=== PATIENT | male | born 1995 | race Caucasian/White ===

== ENCOUNTER 2016-07-20 06:43 | Emergency (ER) | payer OTHER ==
[~2016-07-20] VITALS: Ht 182.9 cm; Wt 83.2 kg
[2016-07-20 06:47] VITALS: TEMP 36.4; Ht 182.9 cm; Wt 83.2 kg
[2016-07-20] MEDS ORDERED: SODIUM CHLORIDE 0.9% 1000ML 500 ML IV STA (06:58)
--- NOTE | 2016-07-20 07:06 | EMERGENCY ROOM VISIT NOTE ---
History Report prepared by Monica: Opal Grgeory Under the Supervision of: Dr. Ricci Stoll M.D. First contact with patient: 06:54 Chief Complaint: ABDOMINAL PAIN Stated Complaint: SHARP PAIN ON RT SIDE OF ABDOMEN History of Present Illness The patient is a 21 year old male who presents to the Emergency Room with complaints of intermittent right sided abdominal pain starting 3 days ago. He describes the pain as sharp and rates his discomfort as an 8/10 at its worst. When the pain presents, it occurs for about 5 seconds at a time for a period of 1-2 hours, after which he does not experience any pain for a couple hours. He presents to the ED today after his pain worsened this morning. He identifies no worsening or relieving factors. He denies any changes to bowel movements, urinary symptoms, nausea, fever, chills, cough, or cold. He has not had any abdominal surgeries before. Source of History: patient Onset: 3 days ago Position: abdomen (right side) Symptom Intensity: 8/10 Quality: sharp Timing: intermittent Associated Symptoms: No chills, No cough, No fevers, No nausea, No urinary symptoms Note: Pt denies changes to bowel movements, cold. Review of Systems See HPI for pertinent positives & negatives. A total of 10 systems reviewed and were otherwise negative. Family History Cancer Hypertension Social History Smoking Status: Never Smoker Smokeless Tobacco Use: No Alcohol Use: occasionally Marital Status: single Occupation Status: [employer] student Current/Historical Medications Scheduled Acetaminophen Tab (Tylenol), 3 TABS PO UD Pantoprazole (Protonix), 20 MG PO DAILY Sennosides-Docusate Sodium (Senokot S), 2 TAB PO BID Allergies Coded Allergies: No Known Allergies (Unverified , 07/20/16) Physical Exam Vital Signs Date Time Temp Pulse Resp B/P Pulse Ox O2 Delivery O2 Flow Rate FiO2 07/20/16 09:15 60 18 123/78 99 07/20/16 08:21 63 20 127/75 100 Room Air 07/20/16 06:47 36.4 67 19 152/88 99 Room Air Physical Exam GENERAL: Patient is in no acute distress. HEENT: No acute trauma, normocephalic atraumatic, mucous membranes moist, no nasal congestion, no scleral icterus. NECK: No stridor, no adenopathy, no meningismus, trachea is midline. LUNGS: Clear to auscultation bilaterally, no wheeze, no rhonchi, breath sounds equal. HEART: Without murmurs gallops or rubs, regular rate and rhythm. ABDOMEN: Soft, mildly tender in the RUQ, bowel sounds positive, no hernias, no peritonitis. EXTREMITIES: No cyanosis or edema, full range of motion of all the joints without pain or difficulty, no signs for acute trauma. NEUROLOGIC: Oriented x 3, no acute motor or sensory deficits, no focal weakness. SKIN: No rash, no jaundice, no diaphoresis. Medical Decision & Procedures ER Provider Diagnostic Interpretation: X ray results and stated below per my interpretation and radiologist interpretation. Other radiology results and stated below per my review and radiologist interpretation: ABDOMEN 2VIEW W/PA CHEST RTN CLINICAL HISTORY: ABDOMINAL PAIN/GI pain. Nausea. COMPARISON STUDY: No previous studies for comparison. FINDINGS: The soft tissues, psoas shadows, renal outlines and intestinal gas pattern appear normal. There is no evidence for bowel obstruction. There is no evidence for free intraperitoneal air. Nonspecific calcification right lateral pelvis.. A frontal view of the chest was performed and is unremarkable. IMPRESSION: 1. Negative chest. 2. Nonspecific calcification right lateral pelvis. 3. Nonobstructive bowel pattern. Electronically signed by: Hector Pastor M.D. 07/20/2016 7:56 AM Dictated Date/Time: 07/20/2016 7:54 AM ABDOMINAL ULTRASOUND, RIGHT UPPER QUADRANT HISTORY: Right-sided abdominal pain. COMPARISON: None. FINDINGS: The liver is sonographically normal. There is no biliary ductal dilatation. The gallbladder is normal. No gallstones. The pancreas is sonographically normal. No right hydronephrosis is present. IMPRESSION: No significant abnormality identified within the right upper quadrant. Electronically signed by: Trey Cordova M.D. 07/20/2016 8:14 AM Dictated Date/Time: 07/20/2016 8:12 AM Laboratory Results 07/20/16 07:08 Red Blood Count 4.79, Mean Corpuscular Volume 86.4, Mean Corpuscular Hemoglobin 30.7, Mean Corpuscular Hemoglobin Concent 35.5, Mean Platelet Volume 10.4, Neutrophils (%) (Auto) 39.1, Lymphocytes (%) (Auto) 44.8, Monocytes (%) (Auto) 12.0, Eosinophils (%) (Auto) 3.7, Basophils (%) (Auto) 0.2, Neutrophils # (Auto ) 2.11, Lymphocytes # (Auto) 2.42, Monocytes # (Auto) 0.65, Eosinophils # (Auto ) 0.20, Basophils # (Auto) 0.01 07/20/16 07:08 Test 07/20/16 07:08 07/20/16 08:55 White Blood Count 5.40 K/uL (4.8-10.8) Red Blood Count 4.79 M/uL (4.7-6.1) Hemoglobin 14.7 g/dL (14.0-18.0) Hematocrit 41.4 % (42-52) Mean Corpuscular Volume 86.4 fL (80-100) Mean Corpuscular Hemoglobin 30.7 pg (25-34) Mean Corpuscular Hemoglobin Concent 35.5 g/dl (32-36) Platelet Count 194 K/uL (130-400) Mean Platelet Volume 10.4 fL (7.4-10.4) Neutrophils (%) (Auto) 39.1 % Lymphocytes (%) (Auto) 44.8 % Monocytes (%) (Auto) 12.0 % Eosinophils (%) (Auto) 3.7 % Basophils (%) (Auto) 0.2 % Neutrophils # (Auto) 2.11 K/uL (1.4-6.5) Lymphocytes # (Auto) 2.42 K/uL (1.2-3.4) Monocytes # (Auto) 0.65 K/uL (0.11-0.59) Eosinophils # (Auto) 0.20 K/uL (0-0.5) Basophils # (Auto) 0.01 K/uL (0-0.2) RDW Standard Deviation 41.0 fL (36.4-46.3) RDW Coefficient of Variation 12.8 % (11.5-14.5) Immature Granulocyte % (Auto) 0.2 % Immature Granulocyte # (Auto) 0.01 K/uL (0.00-0.02) Anion Gap 8.0 mmol/L (3-11) Est Creatinine Clear Calc Drug Dose 135.6 ml/min Estimated GFR () 133.6 Estimated GFR (Non- 115.3 BUN/Creatinine Ratio 11.2 (10-20) Calcium Level 8.8 mg/dl (8.5-10.1) Total Bilirubin 0.6 mg/dl (0.2-1) Aspartate Amino Transf (AST/SGOT) 12 U/L (15-37) Alanine Aminotransferase (ALT/SGPT) 17 U/L (12-78) Alkaline Phosphatase 80 U/L (45-117) Total Protein 7.6 gm/dl (6.4-8.2) Albumin 4.1 gm/dl (3.4-5.0) Globulin 3.5 gm/dl (2.5-4.0) Albumin/Globulin Ratio 1.2 (0.9-2) Lipase 188 U/L (73-393) Urine Color YELLOW Urine Appearance CLEAR (CLEAR) Urine pH 5.0 (4.5-7.5) Urine Specific [place] 1.008 (1.000-1.030) Urine Protein NEG (NEG) Urine Glucose (UA) NEG (NEG) Urine Ketones NEG (NEG) Urine Occult Blood NEG (NEG) Urine Nitrite NEG (NEG) Urine Bilirubin NEG (NEG) Urine Urobilinogen NEG (NEG) Urine Leukocyte Esterase NEG (NEG) Urine dip negative for infection or blood Laboratory results reviewed by me. Medications Administered Medications (Trade) Dose Ordered Sig/Ulises Route Start Time Stop Time Status Last Admin Dose Admin Sodium Chloride (Nss 1000ml) 500 ml @ 999 mls/hr Q31M STAT IV 07/20/16 06:58 07/20/16 07:28 DC 07/20/16 07:17 999 MLS/HR ED Course 0654: The patient was evaluated in room B10. A complete history and physical exam was performed. 0658: NSS 500 ml @ 999 mls/hr IV. 0856: I reevaluated the patient. He is resting comfortably. 0909: I reevaluated the patient. I discussed results and discharge instructions : He verbalized understanding and agreement. The patient is ready for discharge. Medical Decision Differential diagnoses: biliary colic, pancreatitis, appendicitis, constipation , intestinal colic, pneumonia, renal colic, UTI, musculoskeletal pain There is no leukocytosis or concerning anemia. No significant electrolyte abnormality, kidney failure, hepatitis or pancreatitis. Urinalysis does not show hematuria or infection. Gallbladder ultrasound showed no gallstones or acute cholecystitis. Abdominal series shows no pneumonia, free air or bowel obstruction. There was stool noted in the colon, especially the right colon. The patient presents with right-sided abdominal pain that has been intermittent. He was having minimal discomfort but the time he arrived in the ER. He is not toxic, he is not febrile. The cause for the pain is unclear. I do think the patient can be discharged. I will give him some Senokot in case his pain is from the stool in the right colon. He can use some Protonix for stomach upset. The patient was encouraged to return here for pain moving to the right lower quadrant, worsening pain, fever or nausea. He was reassured. Impression Primary Impression: Right sided abdominal pain Scribe Attestation The scribe's documentation has been prepared under my direction and personally reviewed by me in its entirety. I confirm that the note above accurately reflects all work, treatment, procedures, and medical decision making performed by me. Departure Information Dispostion Home / Self-Care Prescriptions Pantoprazole (Protonix) 20 Mg Tab 20 MG PO DAILY, #30 TAB Prov: Ricci Stoll M.D. 07/20/16 Sennosides-Docusate Sodium (SENOKOT S) 1 Tab Tab 2 TAB PO BID, #20 TAB Prov: Ricci Stoll M.D. 07/20/16 Referrals No Doctor, Assigned (PCP) Forms HOME CARE DOCUMENTATION FORM, IMPORTANT VISIT INFORMATION, School Instructions Patient Instructions My [facility] [place] [employer] Additional Instructions senokot 2 tab 2x per day to help bowel movements protonix daily for 2 weeks bland diet for a few days--soup, toast, gatorade return for worsening pain, nausea, vomiting or fever return for pain moving to the Right lower side lab testing was all ok, gall bladder ultrasound was normal
[2016-07-20] MEDS ORDERED: ACET325T96 PO (07:08)
[2016-07-20 07:22] LABS: BASO % 0.2 %; BASO ABS # 0.01 K/uL (0-0.2); COMPLETE YES; EOS % 3.7 %; HEMATOCRIT 41.4 % (42-52); IG% 0.2 %; LYMPH % 44.8 %; LYMPH ABS # 2.42 K/uL (1.2-3.4); MEAN CELL VOLUME 86.4 fL (80-100); MEAN CORPUSCULAR HEMOGLOBIN 30.7 pg (25-34); MEAN CORPUSCULAR HGB CONC 35.5 g/dl (32-36); MEAN PLATELET VOLUME 10.4 fL (7.4-10.4); NEUT % 39.1 %; PLATELET COUNT 194 K/uL (130-400); RED BLOOD COUNT 4.79 M/uL (4.7-6.1)
[2016-07-20 07:40] LABS: BUN/CREATININE RATIO 11.2 (10-20); CALCIUM 8.8 mg/dl (8.5-10.1); CREATININE 0.93 mg/dl (0.60-1.40); POTASSIUM 3.7 mmol/L (3.5-5.1)
[2016-07-20 07:43] LABS: ALB/GLOB RATIO 1.2 (0.9-2)
--- NOTE | 2016-07-20 07:58 | DIAGNOSTIC IMAGING REPORT ---
ABDOMEN 2VIEW W/PA CHEST RTN CLINICAL HISTORY: ABDOMINAL PAIN/GI pain. Nausea. COMPARISON STUDY: No previous studies for comparison. FINDINGS: The soft tissues, psoas shadows, renal outlines and intestinal gas pattern appear normal. There is no evidence for bowel obstruction. There is no evidence for free intraperitoneal air. Nonspecific calcification right lateral pelvis.. A frontal view of the chest was performed and is unremarkable. IMPRESSION: 1. Negative chest. 2. Nonspecific calcification right lateral pelvis. 3. Nonobstructive bowel pattern. Electronically signed by: Hector Pastor M.D. 07/20/2016 7:56 AM Dictated Date/Time: 07/20/2016 7:54 AM
--- NOTE | 2016-07-20 08:16 | DIAGNOSTIC IMAGING REPORT ---
ABDOMINAL ULTRASOUND, RIGHT UPPER QUADRANT HISTORY: Right-sided abdominal pain. COMPARISON: None. FINDINGS: The liver is sonographically normal. There is no biliary ductal dilatation. The gallbladder is normal. No gallstones. The pancreas is sonographically normal. No right hydronephrosis is present. IMPRESSION: No significant abnormality identified within the right upper quadrant. Electronically signed by: Trey Cordova M.D. 07/20/2016 8:14 AM Dictated Date/Time: 07/20/2016 8:12 AM
[2016-07-20 09:10] LABS: URINE APPEARANCE CLEAR (CLEAR); URINE BILIRUBIN NEG (NEG); URINE COLOR YELLOW; URINE NITRITE NEG (NEG); URINE SPECIFIC GRAVITY 1.008 (1.000-1.030); UROBILINOGEN NEG (NEG); ZZUR CULT IF INDIC CLEAN CATCH NO
[2016-07-20 09:14] LABS: MANUAL MICROSCOPIC REQUIRED? NO; REVIEW REQ? NO
[2016-07-20] MEDS ORDERED: SENN-65 PO (09:14)
[2016-07-20] MEDS ORDERED: PRT/20 PO (09:14)
[2016-07-20 09:15] VITALS: BP 123/78; PULSE 60; O2SAT 99
== END 2016-07-20 09:15 | disposition home or self-care (01) ==
LOC: C.EDB 06:44
DX: R10.9 Unspecified abdominal pain (principal); Z79.899 Other long term (current) drug therapy; Z80.9 Family history of malignant neoplasm, unspecified; Z82.49 Family history of ischemic heart disease and other diseases of the circulatory system